=== PATIENT | female | born 1965 | race Caucasian/White ===

== ENCOUNTER 2019-06-07 12:22 | Inpatient (IN) | payer MEDICAID, OTHER ==
[~2019-06-07] VITALS: Ht 157.5 cm; Wt 78.0 kg
[~2019-06-07 12:22] MED LIST: OLAN5TAB27 PO; OLAN7.5T2 PO
[2019-06-07] MEDS ORDERED: LORazepam 2 MG/ML VIAL IM ONE (13:15)
[2019-06-07] MEDS ORDERED: DiphenhydrAMINE HCL 50 MG/ML VIAL IM ONE (13:15)
[2019-06-07] MEDS ORDERED: HALOPERIDOL LACTATE 5 MG/ML VIAL IM ONE (13:15)
[2019-06-07 14:40] LABS: BASOPHILS % (AUTO) 0.7 % (0.0-2.0); EOSINOPHILS % (AUTO) 1.1 % (1.0-6.0); HEMATOCRIT 36.7 % (36-46); HEMOGLOBIN 12.1 g/dL (12.0-16.0); LYMPHOCYTES # (AUTO) 1.9 K/uL (1.0-4.8); LYMPHOCYTES % (AUTO) 26.5 % (22.0-44.0); MEAN CORPUSCULAR HEMOGLOBIN 31.7 pg (26.0-34.0); MEAN CORPUSCULAR HGB CONC 32.9 G/dL (31.0-37.0); MEAN CORPUSCULAR VOLUME 96 fL (80-100); MONOCYTES # (AUTO) 0.7 K/uL (0.1-1.0); MONOCYTES % (AUTO) 9.6 % (2.0-9.0); NEUTROPHILS # (AUTO) 4.5 K/uL (1.8-7.7); NEUTROPHILS % (AUTO) 62.1 % (40.0-70.0); PLATELET COUNT (AUTO) 286 K/uL (150-450); RED BLOOD CELL COUNT(AUTO) 3.82 MIL/uL (4.00-5.20); RED CELL DISTRIBUTION WIDTH 13.1 % (11.5-14.5)
[2019-06-07 14:55] LABS: ANION GAP 8 mmol/L (8-16); CALCIUM, TOTAL 8.6 mg/dL (8.8-10.5); CARBON DIOXIDE 28 mmol/L (22-29); CHLORIDE 103 mmol/L (98-107); CREATININE 0.68 mg/dL (0.60-1.30); GLOMERULAR FILTR. RATE CALC > 60 mL/min (>60); GLUCOSE,RANDOM 102 mg/dL (70-110); POTASSIUM 3.6 mmol/L (3.5-5.1); SODIUM SERUM 139 mmol/L (136-145); UREA NITROGEN, BLOOD 17 mg/dL (7-18)
[2019-06-07 15:01] LABS: ALANINE AMINOTRANSFERASE 20 U/L (12-78); ALBUMIN 3.4 g/dL (3.4-5.0); ALKALINE PHOSPHATASE 92 U/L (46-116); ASPARTATE AMINOTRANSFERASE 21 U/L (15-37); BILIRUBIN,TOTAL 0.3 mg/dL (0.1-1.0); TOTAL PROTEIN, SERUM 7.5 g/dL (6.4-8.2)
[2019-06-07] MEDS ORDERED: OLANZapine 5 MG RAPDIS TABLET PO PRN (19:30)
[2019-06-07 21:44] VITALS: BP 146/76
[2019-06-07] MEDS ORDERED: INFLUENZA VIRUS VACCINE QVS 2019-20 (3YR+)/PF 60 MCG/0.5 ML SYRINGE IM ONE (22:00)
[2019-06-08 06:33] VITALS: BP 135/80
[2019-06-08] MEDS ORDERED: LOPERAMIDE HCL 2 MG CAPSULE PO PRN (10:00)
[2019-06-08] MEDS ORDERED: NICOTINE 14 MG/24 HOUR PATCH TD PRN (10:00)
[2019-06-08] MEDS ORDERED: MAG HYDROX/AL HYDROX/SIMETH ES 30 ML SUSPENSION UDCUP PO PRN (10:00)
[2019-06-08] MEDS ORDERED: ONDANSETRON HCL 4 MG TABLET PO PRN (10:00)
[2019-06-08] MEDS ORDERED: DOCUSATE SODIUM 100 MG CAPSULE PO PRN (10:00)
[2019-06-08] MEDS ORDERED: PETROLATUM,WHITE 28 GM JELLY TP PRN (10:00)
[2019-06-08] MEDS ORDERED: CloNIDine HCL 0.1 MG TABLET PO PRN (10:00)
[2019-06-08] MEDS ORDERED: MAGNESIUM HYDROXIDE SUSPENSION 30 ML UDCUP PO PRN (10:00)
[2019-06-08] MEDS ORDERED: GuaiFENesin/D-METHORPHAN [SUGAR-FREE] 200-20MG/10 ML SYRUP UDCUP PO PRN (10:00)
[2019-06-08 16:31] VITALS: BP 134/83
[2019-06-08] MEDS: OLANZapine 7.5 MG TABLET PO SCH (20:32)
[2019-06-09 05:25] VITALS: BP 133/60
[2019-06-09 08:12] VITALS: BP 125/66
[2019-06-09] MEDS: OLANZapine 7.5 MG TABLET PO SCH (08:34)
[2019-06-09 08:57] LABS: HEMOGLOBIN A1C 5.6 % (4.5-6.2)
[2019-06-09 09:21] LABS: CHOL/HDL RATIO 2.5 (3.9-5.7)
[2019-06-09 09:42] LABS: THYROID STIMULATING HORMONE 0.47 uIU/mL (0.36-3.74)
[2019-06-09 16:27] VITALS: BP 118/76
[2019-06-10 06:58] VITALS: BP 113/67
[2019-06-10 08:10] VITALS: BP 118/58
[2019-06-10] MEDS: OLANZapine 7.5 MG TABLET PO SCH ×3 (08:28→20:58)
[2019-06-10 16:04] VITALS: BP 133/74
[2019-06-11 02:23] VITALS: BP 109/75
[2019-06-11 08:13] VITALS: BP 124/53
[2019-06-11] MEDS: OLANZapine 7.5 MG TABLET PO SCH ×2 (08:49→20:20)
[2019-06-11 16:05] VITALS: BP 133/88
[2019-06-12 04:58] VITALS: BP 129/79
[2019-06-12] MEDS: OLANZapine 7.5 MG TABLET PO SCH ×2 (08:14→20:31)
[2019-06-12 08:26] VITALS: BP 126/67
[2019-06-12 15:52] VITALS: BP 134/72
[2019-06-12] MEDS: ACETAMINOPHEN 325 MG TABLET PO PRN (15:56)
[2019-06-12] MEDS: LORazepam 2 MG TABLET PO PRN (17:29)
[2019-06-12] MEDS: ALBUTEROL SULFATE HFA 90 MCG/PUFF 8 GM INHALER IH PRN (17:31)
[2019-06-13 05:07] VITALS: BP 128/89
[2019-06-13] MEDS: OLANZapine 7.5 MG TABLET PO SCH ×2 (08:11→20:09)
[2019-06-13 08:22] VITALS: BP 117/63
[2019-06-13] MEDS: LORazepam 2 MG TABLET PO PRN ×3 (12:19→22:14)
[2019-06-13] MEDS: ACETAMINOPHEN 325 MG TABLET PO PRN (14:30)
[2019-06-13 16:31] VITALS: BP 110/81
[2019-06-13] MEDS: ZOLPIDEM TARTRATE 10 MG TABLET PO PRN (20:08)
[2019-06-14 02:16] VITALS: BP 124/75
[2019-06-14] MEDS: OLANZapine 7.5 MG TABLET PO SCH ×2 (08:05→20:49)
[2019-06-14 08:07] VITALS: BP 134/70
[2019-06-14 16:07] VITALS: BP 129/87
[2019-06-14] MEDS: IBUPROFEN 400 MG TABLET PO PRN (16:07)
[2019-06-14 16:17] VITALS: BP 129/87
[2019-06-14] MEDS: ZOLPIDEM TARTRATE 10 MG TABLET PO PRN (20:48)
[2019-06-15 05:30] VITALS: BP 110/70
[2019-06-15] MEDS: IBUPROFEN 400 MG TABLET PO PRN (06:06)
[2019-06-15 08:16] VITALS: BP 114/66
[2019-06-15] MEDS: ALBUTEROL SULFATE HFA 90 MCG/PUFF 8 GM INHALER IH PRN ×2 (08:58→17:35)
[2019-06-15] MEDS: OLANZapine 7.5 MG TABLET PO SCH ×2 (09:00→20:06)
[2019-06-15] MEDS: ACETAMINOPHEN 325 MG TABLET PO PRN (13:45)
[2019-06-15 13:48] VITALS: BP 121/61
[2019-06-15] MEDS ORDERED: HALOPERIDOL LACTATE 5 MG/ML VIAL IM PRN (15:15)
[2019-06-15 16:27] VITALS: BP 124/61
[2019-06-15] MEDS: ZOLPIDEM TARTRATE 10 MG TABLET PO PRN (20:06)
[2019-06-16 08:24] VITALS: BP 120/70
[2019-06-16] MEDS: OLANZapine 7.5 MG TABLET PO SCH ×2 (09:07→20:10)
[2019-06-16 16:08] VITALS: BP 120/68
[2019-06-17 06:24] VITALS: BP 109/67
[2019-06-17 08:29] VITALS: BP 127/56
[2019-06-17] MEDS: OLANZapine 7.5 MG TABLET PO SCH ×2 (08:57→20:35)
[2019-06-17 16:28] VITALS: BP 126/72
[2019-06-18 08:18] VITALS: BP 140/80
[2019-06-18] MEDS: OLANZapine 7.5 MG TABLET PO SCH ×2 (08:28→20:43)
[2019-06-18 16:33] VITALS: BP 120/63
[2019-06-18] MEDS: ZOLPIDEM TARTRATE 10 MG TABLET PO PRN (20:43)
[2019-06-19 06:38] VITALS: BP 128/72
[2019-06-19] MEDS: OLANZapine 10 MG TABLET PO SCH ×2 (08:50→20:03)
[2019-06-19 16:27] VITALS: BP 115/68
[2019-06-20 06:23] VITALS: BP 131/75
[2019-06-20 08:34] VITALS: BP 124/65
[2019-06-20] MEDS: OLANZapine 10 MG TABLET PO SCH ×2 (09:10→20:03)
[2019-06-20 16:11] VITALS: BP 116/66
[2019-06-20] MEDS: ALBUTEROL SULFATE HFA 90 MCG/PUFF 8 GM INHALER IH PRN (18:33)
[2019-06-20] MEDS: LORazepam 2 MG TABLET PO PRN (20:06)
[2019-06-21 08:13] VITALS: BP 131/72
[2019-06-21] MEDS: OLANZapine 10 MG TABLET PO SCH ×2 (08:18→20:13)
[2019-06-21 16:06] VITALS: BP 113/70
[2019-06-21] MEDS: ZOLPIDEM TARTRATE 10 MG TABLET PO PRN (20:29)
[2019-06-22 06:18] VITALS: BP 122/71
[2019-06-22 08:34] VITALS: BP 149/66
[2019-06-22] MEDS ORDERED: OLAN10TA3 PO ×2 (08:40→08:47)
[2019-06-22] MEDS: OLANZapine 10 MG TABLET PO SCH (08:55)
[2019-06-22] MEDS ORDERED: OLAN10TA20 PO (09:50)
== END 2019-06-22 13:07 | disposition home or self-care (01) | DRG 753 ==
LOC: EMS 12:27 → B3A 20:00
DX: F31.2 Bipolar disorder, current episode manic severe with psychotic features (principal); E83.51 Hypocalcemia; I10 Essential (primary) hypertension; D64.9 Anemia, unspecified; F41.9 Anxiety disorder, unspecified; Z59.0 Homelessness
CPT/HCPCS: 83036; 84443; 99291; G0480; J1200; J1630; J2060; J3535